=== PATIENT | female | born 1990 | race Caucasian/White ===

== ENCOUNTER → 2017-05-07 09:58 | Outpatient (RCR) | payer MEDICAID ==
[~2017-05-07] VITALS: Ht 152.4 cm; Wt 68.5 kg
[~2017-05-07 09:58] MED LIST: FERROUS SU325 MG/TAB PO; IBU600 MG PO; NORCO 325 MG-51 TAB PO; PRENATAL1 TA7 PO; ULTRAM 50MG TAB50 MG PO
== END | disposition home or self-care (01) ==
LOC: EDSTATUS 04-29 07:04 → LDRO 04-29 14:58
DX: O30.003 Twin pregnancy, unspecified number of placenta and unspecified number of amniotic sacs, third trimester (principal); Z3A.36 36 weeks gestation of pregnancy

== ENCOUNTER 2017-05-13 12:55 | Outpatient (CLI) | payer MEDICAID ==
[~2017-05-13] VITALS: Ht 152.4 cm; Wt 69.1 kg
[~2017-05-13 12:55] MED LIST changes: -IBU600 MG PO; -NORCO 325 MG-51 TAB PO
[2017-05-13 13:00] VITALS: BP 109/66; PULSE 102; TEMP 98.5
== END 2017-05-13 13:40 | disposition home or self-care (01) ==
LOC: LDRO 12:55
DX: O36.8130 Decreased fetal movements, third trimester, not applicable or unspecified (principal); Z3A.37 37 weeks gestation of pregnancy

== ENCOUNTER 2017-05-17 09:23 | Inpatient (IN) | payer MEDICAID ==
[2017-05-17] VITALS (16 sets, daily range): BP systolic 104–136; BP diastolic 54–84; PULSE 56–86; TEMP 97.4–98.2
[~2017-05-17] VITALS: Ht 152.4 cm; Wt 70.9 kg
[2017-05-17 10:53] LABS: BASO % 0.2 % (0.0-2.0); EOS # 0.2 (0.0-0.7); EOS % 1.6 % (0-4.0); GRAN # 7.1 (1.4-6.5); GRAN % 69.2 % (42.2-75.2); LYMPH # 2.1 (1.2-3.4); LYMPH % 20.1 % (20.0-51.0); MEAN CELL VOLUME 85 fl (80.0-100.0); MEAN CORPUSCULAR HGB CONC 33 g/dl (33.0-37.0); MEAN PLATELET VOLUME 11.6 fl (7.4-10.4); MONO # 0.8 (0.1-0.6); MONO % 8.1 % (1.7-9.3); PLATELET COUNT 192 K/mm3 (130-400); RED BLOOD COUNT 3.96 M/mm3 (4.10-5.30); REDCELL DISTRIBUTION WIDTH-CV 19.2 % (11.5-14.5); WHITE BLOOD COUNT 10.3 K/mm3 (4.8-10.8)
[2017-05-17 10:58] LABS: HEMATOCRIT 33.6 % (37.0-47.0); HEMOGLOBIN 11.1 g/dl (12.5-16.0); MEAN CORPUSCULAR HEMOGLOBIN 28 pg (27.0-31.0)
[2017-05-18 07:45] VITALS: BP 104/62; PULSE 67; TEMP 97.4
[2017-05-18 07:59] LABS: BASO % 0.2 % (0.0-2.0); EOS # 0.2 (0.0-0.7); EOS % 1.5 % (0-4.0); GRAN # 8.4 (1.4-6.5); GRAN % 68.3 % (42.2-75.2); HEMOGLOBIN 9.9 g/dl (12.5-16.0); LYMPH # 2.3 (1.2-3.4); LYMPH % 18.8 % (20.0-51.0); MEAN CELL VOLUME 87 fl (80.0-100.0); MEAN CORPUSCULAR HEMOGLOBIN 29 pg (27.0-31.0); MEAN CORPUSCULAR HGB CONC 33 g/dl (33.0-37.0); MEAN PLATELET VOLUME 12.3 fl (7.4-10.4); MONO # 1.3 (0.1-0.6); MONO % 10.6 % (1.7-9.3); PLATELET COUNT 155 K/mm3 (130-400); RED BLOOD COUNT 3.47 M/mm3 (4.10-5.30); REDCELL DISTRIBUTION WIDTH-CV 18.8 % (11.5-14.5); WHITE BLOOD COUNT 12.3 K/mm3 (4.8-10.8)
[2017-05-18 20:30] VITALS: BP 111/68; PULSE 66; TEMP 98.3
[2017-05-19 07:00] VITALS: BP 108/68; PULSE 75; TEMP 98.1
[2017-05-19 20:15] VITALS: BP 122/68; PULSE 83; TEMP 98.2
[2017-05-20 07:15] VITALS: BP 116/72; PULSE 73; TEMP 98.2
[2017-05-20] MEDS ORDERED: NORCO 325 MG-51 TAB PO (09:24)
[2017-05-20] MEDS ORDERED: IBU600 MG PO (09:24)
== END 2017-05-20 12:45 | disposition home or self-care (01) | DRG 765 ==
LOC: OB 09:23
PROVIDERS: Obstetrics & Gynecology
PROC: 10D00Z1 Extraction of Products of Conception, Low, Open Approach (ICD-10-PCS; principal; 2017-05-17)
PROC: 0UB70ZZ Excision of Bilateral Fallopian Tubes, Open Approach (ICD-10-PCS; 2017-05-17)
DX: O30.043 Twin pregnancy, dichorionic/diamniotic, third trimester (principal); O72.1 Other immediate postpartum hemorrhage; D62 Acute posthemorrhagic anemia; O99.334 Smoking (tobacco) complicating childbirth; F17.210 Nicotine dependence, cigarettes, uncomplicated; Z40.09 Encounter for prophylactic removal of other organ; O99.02 Anemia complicating childbirth; Z3A.37 37 weeks gestation of pregnancy; Z37.2 Twins, both liveborn
CPT/HCPCS: J0690; J1885; J2175; J2210; J2270; J2370; J2405; J2590; J7120